=== PATIENT | male | born 1955 | race Caucasian/White ===

== ENCOUNTER 2024-01-06 08:22 | Observation (INO) ==
[2024-01-06] MEDS: NOZIN NASAL SANITIZER TP ONE (08:47)
[2024-01-06] MEDS: NS 1,000 ML IV 1,000 ML ONE ×2 (08:49→14:30)
[2024-01-06] MEDS: FENTANYL VIAL INJ 100 mcg ONE (11:24)
[2024-01-06] MEDS: VERSED ONE (11:30)
[2024-01-06] MEDS: CLEOCIN 600 MG IV PREMIX 600 MG/50 ML BAG IV ONE (12:45)
[2024-01-06] MEDS ORDERED: PRECEDEX INJ VIAL ONE (12:54)
[2024-01-06] MEDS: DIPRIVAN VIAL 20 ML ONE ×3 (12:54→14:48)
[2024-01-06] MEDS: BETADINE SOLN ONE (12:54)
[2024-01-06] MEDS ORDERED: KETAMINE HCL ONE (12:54)
[2024-01-06] MEDS: XYLOCAINE 2 % (PLAIN) ONE (12:54)
[2024-01-06] MEDS: XYLOCAINE 1% and EPINEPHRINE 1:100,000 ONE ×2 (13:15→14:49)
[2024-01-06] MEDS: HYDROGEN PEROXIDE 3% ONE (13:17)
[2024-01-06] MEDS: EPHEDRINE SULFATE INJ ONE (13:18)
[2024-01-06] MEDS: NEO-SYNEPHRINE INJ ONE (13:24)
[2024-01-06] MEDS: OFIRMEV IV 1000 MG VIAL 1,000 MG/100 ML VIAL IV ONE (14:04)
[2024-01-06] MEDS: MORPHINE SULFATE INJ 10 MG ONE (15:14)
[2024-01-06] MEDS ORDERED: ZOFRAN INJ 4 MG VIAL IVP PRN ×2 (15:26→15:43)
[2024-01-06] MEDS ORDERED: TYLENOL 325 MG TAB PO PRN (15:26)
[2024-01-06] MEDS: DILAUDID INJ IVP PRN (15:33)
[2024-01-06] MEDS ORDERED: BENADRYL INJ 50 MG VIAL IVP PRN (15:43)
[2024-01-06] MEDS: ZOFRAN INJ 4 MG VIAL ONE (16:19)
[2024-01-06] MEDS: NS 1,000 ML IV 1,000 ML IV SCH (16:20)
[2024-01-06] MEDS: DILAUDID INJ ONE (16:22)
[2024-01-06] MEDS: COLACE CAP 100 MG PO SCH (21:15)
[2024-01-07] MEDS: NORCO 5/325 MG TAB PO PRN (03:42)
[2024-01-07 06:44] LABS: BASOPHILS # (AUTO) 0.1 X10^3/uL (0.0-0.1); BASOPHILS % (AUTO) 0.7 % (0.2-1.0); EOSINOPHILS # (AUTO) 0.3 x10^3/uL (0.0-0.2); EOSINOPHILS % (AUTO) 3.5 % (0.9-2.9); HEMOGLOBIN 12.2 g/dL (13.5-18.0); LYMPHOCYTES # (AUTO) 1.4 X10^3/uL (1.3-2.9); LYMPHOCYTES % (AUTO) 14.9 % (21.0-51.0); MEAN CORPUSCULAR HEMOGLOBIN 27.5 pg (27.0-34.0); MEAN CORPUSCULAR HGB CONC 32.9 g/dL (33.0-35.0); MEAN CORPUSCULAR VOLUME 83.6 fL (80.0-100.0); MEAN PLATELET VOLUME 9.2 fL (7.4-11.0); MONOCYTES # (AUTO) 0.8 x10^3/uL (0.3-0.8); MONOCYTES % (AUTO) 9.1 % (0.0-13.0); NEUTROPHILS # (AUTO) 6.6 x10^3/uL (2.2-4.8); NEUTROPHILS % (AUTO) 71.8 % (42.0-75.0); PLATELET COUNT 237 X10^3/uL (150.0-450.0); RED BLOOD COUNT 4.43 X10^6/uL (4.7-6.0); RED CELL DISTRIBUTION WIDTH 15.2 % (11.6-16.5); WHITE BLOOD COUNT 9.2 X10^3/uL (3.6-10.0)
[2024-01-07 06:51] LABS: BLOOD UREA NITROGEN 18 mg/dL (7-18); CALCIUM 8.7 mg/dL (8.5-10.1); CHLORIDE 105 mmol/L (98-107); COR NA(FOR HYPERGLY) 142 mmol/L (136-145); CREATININE 1.16 mg/dL (0.70-1.30); GLUCOSE 142 mg/dL (65-99); POTASSIUM 4.1 mmol/L (3.5-5.1); SODIUM 141 mmol/L (136-145); eGFR NON BLACK RACES > 60 (>60)
--- NOTE | 2024-01-07 09:51 | NOTE.SOAP ---
Soap Note Note for Day of Date of Exam: 01/07/24 Subjective Data Subjective Data: Complaining of lateral thigh pain over skin graft site. Asking about pain control as well. Objective Data Objective Data: Left Lower Extremity Exam: STSG site taken down. Xeroform left in place and redressed with Ag dressing. External fixator in place. Dressing with minimal strikethrough. No calf pain. Thigh pain over STSG site. Dressing was removed over flap site and there was noted CFT at flap site. Mild edema with venous congestion at this time using a 30mg Lovenox subq inection approximately 0.5 cc to 1 cc was injected into four spots of the flap to help relieve the congestion. Dressing was reapplied. Blankets were placed under the extremity to elevate the limb. Assessment Assessment: 68 year old M with DFU to LLE s/p POD#1 External fixator adjustment and medial plantar artery flap with STSG coverage of deficity Plan Plan: - Strict NWB to the LLE - Strict bedridden for current moment. - Must use bed hess for bathroom. - Do not administer Lovenox today, nursing aware. - Patient cannot be discharged today. We would like to re-evaluate the flap on 01/08/24.
[2024-01-07] MEDS: LOVENOX INJ 30 MG SYR SC ONE (10:12)
[2024-01-07] MEDS: PERCOCET TAB 5/325 MG PO PRN (10:13)
[2024-01-07] MEDS: NOZIN NASAL SANITIZER TP SCH (10:25)
[2024-01-07] MEDS: NORVASC TAB 10 MG PO SCH (13:36)
[2024-01-07] MEDS: CATAPRES TAB 0.2 MG PO SCH (13:36)
[2024-01-07] MEDS: CELEXA PO SCH (13:36)
[2024-01-07] MEDS: TRICOR TAB 160 MG PO SCH (13:36)
[2024-01-07] MEDS: TENORMIN PO SCH (13:37)
[2024-01-07] MEDS: MILK OF MAGNESIA PO SCH (20:35)
[2024-01-08 06:33] LABS: BASOPHILS % (AUTO) 0.7 % (0.2-1.0); EOSINOPHILS # (AUTO) 0.5 x10^3/uL (0.0-0.2); EOSINOPHILS % (AUTO) 6.2 % (0.9-2.9); HEMATOCRIT 33.6 % (42.0-54.0); LYMPHOCYTES # (AUTO) 1.4 X10^3/uL (1.3-2.9); LYMPHOCYTES % (AUTO) 18.5 % (21.0-51.0); MEAN CORPUSCULAR HEMOGLOBIN 27.3 pg (27.0-34.0); MEAN CORPUSCULAR HGB CONC 32.6 g/dL (33.0-35.0); MEAN CORPUSCULAR VOLUME 83.8 fL (80.0-100.0); MEAN PLATELET VOLUME 9.3 fL (7.4-11.0); MONOCYTES # (AUTO) 0.8 x10^3/uL (0.3-0.8); MONOCYTES % (AUTO) 10.5 % (0.0-13.0); NEUTROPHILS # (AUTO) 4.7 x10^3/uL (2.2-4.8); NEUTROPHILS % (AUTO) 64.1 % (42.0-75.0); PLATELET COUNT 233 X10^3/uL (150.0-450.0); RED BLOOD COUNT 4.01 X10^6/uL (4.7-6.0); RED CELL DISTRIBUTION WIDTH 15.5 % (11.6-16.5); WHITE BLOOD COUNT 7.3 X10^3/uL (3.6-10.0)
--- NOTE | 2024-01-08 09:04 | NOTE.SOAP ---
Soap Note Note for Day of Date of Exam: 01/08/24 Subjective Data Subjective Data: Resting in bed. Ready to leave. Objective Data Objective Data: Left Lower Extremity Exam: External fixator in place. No signs of infection at pin sites. Flap has CFT. Flap is warm. Noted to be slightly congested but overall improving. Margins along edge are noted to be healing as expected Assessment Assessment: 68 year old Diabetic M who is PDO#2 external fixator adjustment and medial plantar artery flap Plan Plan: - NWB to LLE - Can begin Lovenox today. - Strict elevation. - If needed he can get up for transfers or bathroom transfers. - Okay for discharge from our standpoint to go back to facility.
[2024-01-08] MEDS: LOVENOX INJ 40 MG SYR SC SCH (09:14)
[2024-01-08 09:28] VITALS: BMI 34.0
[2024-01-09 06:34] LABS: BASOPHILS % (AUTO) 0.7 % (0.2-1.0); EOSINOPHILS # (AUTO) 0.5 x10^3/uL (0.0-0.2); EOSINOPHILS % (AUTO) 7.6 % (0.9-2.9); HEMATOCRIT 32.4 % (42.0-54.0); HEMOGLOBIN 10.6 g/dL (13.5-18.0); LYMPHOCYTES # (AUTO) 1.5 X10^3/uL (1.3-2.9); LYMPHOCYTES % (AUTO) 22.9 % (21.0-51.0); MEAN CORPUSCULAR HEMOGLOBIN 27.5 pg (27.0-34.0); MEAN CORPUSCULAR HGB CONC 32.8 g/dL (33.0-35.0); MEAN CORPUSCULAR VOLUME 83.9 fL (80.0-100.0); MEAN PLATELET VOLUME 9.5 fL (7.4-11.0); MONOCYTES # (AUTO) 0.7 x10^3/uL (0.3-0.8); MONOCYTES % (AUTO) 10.9 % (0.0-13.0); NEUTROPHILS # (AUTO) 3.8 x10^3/uL (2.2-4.8); NEUTROPHILS % (AUTO) 57.9 % (42.0-75.0); PLATELET COUNT 217 X10^3/uL (150.0-450.0); RED BLOOD COUNT 3.86 X10^6/uL (4.7-6.0); RED CELL DISTRIBUTION WIDTH 15.2 % (11.6-16.5); WHITE BLOOD COUNT 6.6 X10^3/uL (3.6-10.0)
[2024-01-09 07:08] LABS: ALANINE AMINOTRANSFERASE 21 Units/L (12-78); ALBUMIN 2.5 g/dL (3.4-5.0); ALKALINE PHOSPHATASE 47 Units/L (46-116); ASPARTATE AMINO TRANSFERASE 12 Units/L (15-37); BLOOD UREA NITROGEN 22 mg/dL (7-18); CALCIUM 8.4 mg/dL (8.5-10.1); CHLORIDE 105 mmol/L (98-107); COR CA(FOR HYPOALB) 9.6 mg/dL (8.5-10.1); COR NA(FOR HYPERGLY) 140 mmol/L (136-145); CREATININE 1.18 mg/dL (0.70-1.30); GLUCOSE 143 mg/dL (65-99); SODIUM 139 mmol/L (136-145); eGFR NON BLACK RACES > 60 (>60)
--- NOTE | 2024-01-09 13:46 | DR.PROGNOT ---
HOSPITAL PROGRESS NOTE Progress Note for Day of: Progress Note Date: 01/09/24 Chief Complaint Chief Complaint: For pain History of Present Illness History of Present Illness: Patient doing well today. Has been medically cleared for placement in subacute rehab awaiting insurance approval. No overnight events per patient or nursing. Seen with nurse at bedside. PE: Well-developed well-nourished male in no acute distress. Hearing grossly intact. Heart regular rate and rhythm. Lungs are clear. Left lower extremity in external fixator. Past Medical Family Social History Allergies: Allergies Iodinated Contrast Media [IVP DYE] Allergy (Verified 10/21/23 08:47) levofloxacin [From Levaquin] Allergy (Verified 10/21/23 08:47) succinylcholine Allergy (Verified 10/21/23 10:09) cefazolin [From Ancef] Adverse Reaction (Verified 10/21/23 10:09) Vital Signs Vital Signs: Vital Signs Temperature 97.0 F Temperature 97.0 F Pulse Rate [Left Brachial] 50 Pulse Rate [Left Brachial] 52 Respiratory Rate 18 Respiratory Rate 18 Respiratory Rate 19 Respiratory Rate 20 Respiratory Rate 20 Blood Pressure [Left Arm] 143/79 Blood Pressure [Left Arm] 178/80 O2 Sat by Pulse Oximetry 98 O2 Sat by Pulse Oximetry 98 Physical Exam Mood Description: Calm Speech Pattern: Clear and Appropriate Laboratory and Diagnostics 01/09/24 05:50 01/09/24 05:50 Labs: Laboratory WBC 6.6 X10^3/uL (3.6-10.0) 01/09/24 05:50 RBC 3.86 X10^6/uL (4.7-6.0) L 01/09/24 05:50 Hgb 10.6 g/dL (13.5-18.0) L 01/09/24 05:50 Hct 32.4 % (42.0-54.0) L 01/09/24 05:50 MCV 83.9 fL (80.0-100.0) 01/09/24 05:50 MCH 27.5 pg (27.0-34.0) 01/09/24 05:50 MCHC 32.8 g/dL (33.0-35.0) L 01/09/24 05:50 RDW 15.2 % (11.6-16.5) 01/09/24 05:50 Plt Count 217 X10^3/uL (150.0-450.0) 01/09/24 05:50 MPV 9.5 fL (7.4-11.0) 01/09/24 05:50 Neut % (Auto) 57.9 % (42.0-75.0) 01/09/24 05:50 Lymph % (Auto) 22.9 % (21.0-51.0) 01/09/24 05:50 [place] % (Auto) 10.9 % (0.0-13.0) 01/09/24 05:50 Eos % (Auto) 7.6 % (0.9-2.9) H 01/09/24 05:50 Baso % (Auto) 0.7 % (0.2-1.0) 01/09/24 05:50 Neut # (Auto) 3.8 x10^3/uL (2.2-4.8) 01/09/24 05:50 Lymph # (Auto) 1.5 X10^3/uL (1.3-2.9) 01/09/24 05:50 [place] # (Auto) 0.7 x10^3/uL (0.3-0.8) 01/09/24 05:50 Eos # (Auto) 0.5 x10^3/uL (0.0-0.2) H 01/09/24 05:50 Baso # (Auto) 0.0 X10^3/uL (0.0-0.1) 01/09/24 05:50 Absolute Nucleated RBC 0.1 /100WBC 01/09/24 05:50 Sodium 139 mmol/L (136-145) 01/09/24 05:50 Corrected Sodium 140 mmol/L (136-145) 01/09/24 05:50 Potassium 4.0 mmol/L (3.5-5.1) 01/09/24 05:50 Chloride 105 mmol/L (98-107) 01/09/24 05:50 Carbon Dioxide 27.0 mmol/L (21-32) 01/09/24 05:50 BUN 22 mg/dL (7-18) H 01/09/24 05:50 Creatinine 1.18 mg/dL (0.70-1.30) 01/09/24 05:50 Est GFR (MDRD) Af Amer > 60 (>60) 01/09/24 05:50 Est GFR (MDRD) Non-Af > 60 (>60) 01/09/24 05:50 Glucose 143 mg/dL (65-99) H 01/09/24 05:50 POC Glucose (mg/dL) 142 mg/dL (65-99) H 01/09/24 10:51 Calcium 8.4 mg/dL (8.5-10.1) L 01/09/24 05:50 Corrected Calcium 9.6 mg/dL (8.5-10.1) 01/09/24 05:50 Total Bilirubin 0.30 mg/dL (0.2-1.0) 01/09/24 05:50 AST 12 Units/L (15-37) L 01/09/24 05:50 ALT 21 Units/L (12-78) 01/09/24 05:50 Alkaline Phosphatase 47 Units/L (46-116) 01/09/24 05:50 Total Protein 6.0 g/dL (6.4-8.2) L 01/09/24 05:50 Albumin 2.5 g/dL (3.4-5.0) L 01/09/24 05:50 Globulin 3.5 g/dL (2.5-4.5) 01/09/24 05:50 Albumin/Globulin Ratio 0.7 Ratio (1.1-2.1) L 01/09/24 05:50 Assessment and Plan 1: Diabetic peripheral neuropathy. Continue current. 2: Diabetic foot wound status post flap. Continue per podiatry. Agree with rehab and placement.
[2024-01-10 05:42] LABS: BASOPHILS # (AUTO) 0.1 X10^3/uL (0.0-0.1); BASOPHILS % (AUTO) 0.9 % (0.2-1.0); EOSINOPHILS # (AUTO) 0.4 x10^3/uL (0.0-0.2); EOSINOPHILS % (AUTO) 6.4 % (0.9-2.9); HEMATOCRIT 31.2 % (42.0-54.0); HEMOGLOBIN 10.2 g/dL (13.5-18.0); LYMPHOCYTES # (AUTO) 1.5 X10^3/uL (1.3-2.9); LYMPHOCYTES % (AUTO) 21.5 % (21.0-51.0); MEAN CORPUSCULAR HEMOGLOBIN 27.2 pg (27.0-34.0); MEAN CORPUSCULAR HGB CONC 32.7 g/dL (33.0-35.0); MEAN CORPUSCULAR VOLUME 83.2 fL (80.0-100.0); MEAN PLATELET VOLUME 9.8 fL (7.4-11.0); MONOCYTES # (AUTO) 0.7 x10^3/uL (0.3-0.8); MONOCYTES % (AUTO) 10.7 % (0.0-13.0); NEUTROPHILS # (AUTO) 4.2 x10^3/uL (2.2-4.8); NEUTROPHILS % (AUTO) 60.5 % (42.0-75.0); PLATELET COUNT 234 X10^3/uL (150.0-450.0); RED BLOOD COUNT 3.75 X10^6/uL (4.7-6.0); RED CELL DISTRIBUTION WIDTH 15.2 % (11.6-16.5); WHITE BLOOD COUNT 6.9 X10^3/uL (3.6-10.0)
[2024-01-10 06:16] LABS: ALANINE AMINOTRANSFERASE 19 Units/L (12-78); ALBUMIN 2.6 g/dL (3.4-5.0); ALKALINE PHOSPHATASE 48 Units/L (46-116); ASPARTATE AMINO TRANSFERASE 12 Units/L (15-37); BLOOD UREA NITROGEN 20 mg/dL (7-18); CALCIUM 8.4 mg/dL (8.5-10.1); CARBON DIOXIDE 26.4 mmol/L (21-32); CHLORIDE 104 mmol/L (98-107); COR CA(FOR HYPOALB) 9.5 mg/dL (8.5-10.1); COR NA(FOR HYPERGLY) 139 mmol/L (136-145); CREATININE 1.15 mg/dL (0.70-1.30); GLUCOSE 144 mg/dL (65-99); POTASSIUM 4.1 mmol/L (3.5-5.1); SODIUM 138 mmol/L (136-145); TOTAL PROTEIN 6.1 g/dL (6.4-8.2); eGFR NON BLACK RACES > 60 (>60)
--- NOTE | 2024-01-10 14:35 | NOTE.SOAP ---
Soap Note Note for Day of Date of Exam: 01/10/24 Subjective Data Subjective Data: Patient seen with nursing at bedside. Still awaiting placement. Denies any complaints today or overnight. Objective Data Objective Data: Well-developed elderly male in no acute distress. Reclined in bed while eating lunch. Heart regular in rhythm. Lungs are clear. Bowel sounds are present. Hardware present on lower extremity. Assessment Assessment: 1. Type 2 diabetes with peripheral neuropathy. Continue current. 2. Diabetic foot wound status post skin graft. Continue per podiatry. Awaiting placement. 3. Hypertension. At goals. Monitor. Continue current medications.
[2024-01-11 06:17] LABS: BASOPHILS # (AUTO) 0.1 X10^3/uL (0.0-0.1); BASOPHILS % (AUTO) 1.1 % (0.2-1.0); EOSINOPHILS # (AUTO) 0.4 x10^3/uL (0.0-0.2); EOSINOPHILS % (AUTO) 6.4 % (0.9-2.9); HEMATOCRIT 33.3 % (42.0-54.0); HEMOGLOBIN 10.8 g/dL (13.5-18.0); LYMPHOCYTES # (AUTO) 1.2 X10^3/uL (1.3-2.9); LYMPHOCYTES % (AUTO) 19.2 % (21.0-51.0); MEAN CORPUSCULAR HGB CONC 32.5 g/dL (33.0-35.0); MEAN CORPUSCULAR VOLUME 83.1 fL (80.0-100.0); MEAN PLATELET VOLUME 9.5 fL (7.4-11.0); MONOCYTES # (AUTO) 0.7 x10^3/uL (0.3-0.8); MONOCYTES % (AUTO) 10.7 % (0.0-13.0); NEUTROPHILS % (AUTO) 62.6 % (42.0-75.0); PLATELET COUNT 236 X10^3/uL (150.0-450.0); RED BLOOD COUNT 4.01 X10^6/uL (4.7-6.0); RED CELL DISTRIBUTION WIDTH 14.8 % (11.6-16.5); WHITE BLOOD COUNT 6.4 X10^3/uL (3.6-10.0)
[2024-01-11 06:41] LABS: ALANINE AMINOTRANSFERASE 18 Units/L (12-78); ALBUMIN 2.6 g/dL (3.4-5.0); ALKALINE PHOSPHATASE 50 Units/L (46-116); ASPARTATE AMINO TRANSFERASE 17 Units/L (15-37); BLOOD UREA NITROGEN 23 mg/dL (7-18); CALCIUM 8.7 mg/dL (8.5-10.1); CARBON DIOXIDE 26.2 mmol/L (21-32); CHLORIDE 104 mmol/L (98-107); COR CA(FOR HYPOALB) 9.8 mg/dL (8.5-10.1); COR NA(FOR HYPERGLY) 139 mmol/L (136-145); CREATININE 1.11 mg/dL (0.70-1.30); GLUCOSE 143 mg/dL (65-99); POTASSIUM 4.1 mmol/L (3.5-5.1); SODIUM 138 mmol/L (136-145); TOTAL PROTEIN 6.5 g/dL (6.4-8.2); eGFR NON BLACK RACES > 60 (>60)
[2024-01-11 12:12] VITALS: BP 145/77; PULSE 66; RESP 18; TEMP 97.5; O2SAT 97
== END 2024-01-11 13:50 ==
LOC: OBS → MED/SURG 15:55 → EDSTATUS 16:15
PROVIDERS: ADMIT Obstetrics & Gynecology Obstetrics; ATTEND Obstetrics & Gynecology Obstetrics
PROC: SKINGR2 (2024-01-06 16:30)
PROC: APEXFIX (2024-01-06 16:30)
DX: E11.621 Type 2 diabetes mellitus with foot ulcer; E11.42 Type 2 diabetes mellitus with diabetic polyneuropathy; E11.65 Type 2 diabetes mellitus with hyperglycemia; I10 Essential (primary) hypertension